=== PATIENT | male | born 1965 | race Caucasian/White ===

== ENCOUNTER 2019-02-09 19:41 | Emergency (ER) | payer BC ==
[2019-02-09 19:50] VITALS: RESP 18; TEMP 97.6
--- NOTE | 2019-02-09 20:18 | ED ---
Upper Extremity HPI - General Chief Complaint: Extremity Injury, Upper Stated Complaint: leg infection Time Seen by Provider: 02/09/19 19:51 Source: patient Mode of arrival: ambulatory Limitations: no limitations - History of Present Illness Initial Comments: 53-year-old male patient presents to the emergency department today for evaluation of bruising and swelling to the right lower leg. Patient states Wednesday he had an injury where a bar scraped his nj. Patient states that he initially had some burning stinging pain to the area however that resolved quickly and he has been pain-free since. Patient states today when he took his sock and boot off after work he noticed swelling and ecchymosis around the right ankle. Patient denies any pain with this. Denies any calf pain or tenderness. Denies any history of blood clot. Denies any use of anticoagulant trailer platelet medications. Denies any bony tenderness or difficulty ambulating. Pa vinint denies any headache, neck pain, back pain, chest pain, shortness of breath, dizziness, weakness, abdominal pain, nausea, vomiting, or difficulties with bowel movements or urination. - Related Data Allergies Allergy/AdvReac Type Severity Reaction Status Date / Time No Known Allergies Allergy Verified 02/09/19 19:50 Review of Systems ROS Statement: Those systems with pertinent positive or pertinent negative responses have been documented in the HPI. ROS Other: All systems not noted in ROS Statement are negative. Past Medical History Past Medical History: No Reported History History of Any Multi-Drug Resistant Organisms: None Reported Past Surgical History: No Surgical Hx Reported Past Psychological History: No Psychological Hx Reported Smoking Status: Never smoker Past Alcohol Use History: Occasional Past Drug Use History: None Reported General Exam Limitations: no limitations General appearance: alert, in no apparent distress, other (Physical well- developed, well-nourished adult male patient in no acute distress. Vital signs upon presentation are temperature 97.6F, pulse 50, respirations 18, blood pressure 134/86, pulse ox 98% on room air.) Eye exam: Present: normal appearance, PERRL, EOMI. Absent: scleral icterus, conjunctival injection, periorbital swelling Respiratory exam: Present: normal lung sounds bilaterally. Absent: respiratory distress, wheezes, rales, rhonchi, stridor Cardiovascular Exam: Present: regular rate, normal rhythm, normal heart sounds. Absent: systolic murmur, diastolic murmur, rubs, gallop, clicks Extremities exam: Present: full ROM, normal capillary refill, other (Patient has abrasion noted to the proximal nj just beneath the right knee. There is minimal surrounding swelling but no erythema or warmth. No drainage. There is soft tissue swelling noted around the right ankle with ecchymosis surrounding the ankle and along the medial aspect of the right foot. Pedal and posttibial pulses 2+ and equal bilaterally. No bony tenderness or deformity. Full range of motion to the right ankle is intact.). Absent: normal inspection, tenderness, pedal edema, joint swelling, calf tenderness Neurological exam: Present: alert, oriented X3, CN II-XII intact Psychiatric exam: Present: normal affect, normal mood Skin exam: Present: warm, dry, intact, normal color. Absent: rash Course Vital Signs 02/09/19 19:46 Temperature 97.6 F Pulse Rate 50 L Respiratory 18 Rate Blood Pressure 134/86 O2 Sat by Pulse 98 Oximetry Medical Decision Making - Medical Decision Making 53-year-old male patient presented to the emergency department today for evaluation of ecchymosis and swelling surrounding the right ankle after leg injury on Wednesday. Physical examination did reveal a superficial abrasion to the right proximal nj just below the knee, no evidence for cellulitis or infection with this. There was soft tissue swelling and ecchymosis surrounding the right ankle and along the medial aspect of the right foot. There is no bony tenderness. Range of motion is intact. He is able to ambulate without pain or difficulty. Given these reasons we did not perform x-ray at this time. We did discuss contusion as cause for his symptoms with gravitational spread of ecchymotic areas. We'll place Venkatesh wrap around the foot and leg to aid with swelling and to prevent further ecchymosis. He is instructed to rest, ice, elevate the leg. He is instructed to follow-up with his primary care physician for recheck of the area in 1-2 days. Return parameters were discussed in de tail. He verbalizes understanding and agrees with this plan. Disposition Clinical Impression: Traumatic ecchymosis of right lower leg Disposition: HOME SELF-CARE Condition: Good Instructions (If sedation given, give patient instructions): Ecchymosis (ED) Additional Instructions: Use Venkatesh wrap for comfort and support. Apply ice, rest, elevate the leg. Follow up to primary care physician for recheck in 1-2 days. Return to the emergency department immediately for any new, worsening, or concerning symptoms. Is patient prescribed a controlled substance at d/c from ED?: No Referrals: None,Stated [Primary Care Provider] - 1-2 days Time of Disposition: 20:18
[2019-02-09 20:50] VITALS: BP 125/84; PULSE 70
== END 2019-02-09 20:54 | disposition home or self-care (01) ==
LOC: EC 19:41
DX: S80.11XA Contusion of right lower leg, initial encounter (principal); W22.8XXA Striking against or struck by other objects, initial encounter
CPT/HCPCS: 99283